=== PATIENT | male | born 1965 | race Caucasian/White ===

== ENCOUNTER 2020-05-22 13:04 | Emergency (ER) | payer MEDICARE, OTHER ==
[~2020-05-22] VITALS: Ht 165.1 cm; Wt 77.1 kg
[2020-05-22 13:04] VITALS: BP 170/74
--- NOTE | 2020-05-22 13:04 | NUR ---
PATIENT BIBA ALS TO ER BED 10
--- NOTE | 2020-05-22 13:16 | NUR ---
RECEIVED A 54/M FROM EMS FOR A 5150. PER EMS PT REPORTS THAT HE HAS DESIRES TO END HIS LIFE. UPON INTERVIEW WITH THE PATIENT, HE DENIES WANTING TO HARM HIMSELF OR OTHERS. WHEN ASKED WHY THE PATIENT WAS IN THE HOSPITAL HE STATED "I DONT KNOW WHY I'M HERE" PT IS ALERT TO NAME, BIRTHDAY, PLACE, EVENT. ALL POTENTIALLY HAZARDOUS ITEMS REMOVED FROM ROOM. IN BED PENDING MSE.
[2020-05-22 14:03] LABS: BASOPHILS # (AUTO) 0.1 K/uL (0.00-0.22); EOSINOPHILS # (AUTO) 0.2 K/uL (0-0.4); EOSINOPHILS % (AUTO) 3.3 % (0.0-4.0); HEMATOCRIT 28.9 % (36-52); HEMOGLOBIN 9.5 g/dL (12.0-18.0); LYMPHOCYTES # (AUTO) 0.6 K/uL (2.0-11.5); LYMPHOCYTES % (AUTO) 11.3 % (20.5-51.1); MEAN CORPUSCULAR HEMOGLOBIN 32 pg (27-31); MEAN CORPUSCULAR HGB CONC 33 g/dL (33-37); MEAN CORPUSCULAR VOLUME 95.9 fL (80-94); MONOCYTES # (AUTO) 0.4 K/uL (0.8-1.0); MONOCYTES % (AUTO) 7.4 % (1.7-9.3); NEUTROPHILS # (AUTO) 4.1 K/uL (1.8-7.7); PLATELET COUNT (AUTO) 249 K/uL (140-450); RED BLOOD CELL COUNT(AUTO) 3.01 MIL/uL (4.20-6.10); RED CELL DISTRIBUTION WIDTH 14.8 % (11.6-13.7); WHITE BLOOD COUNT (AUTO) 5.3 K/uL (4.8-10.8)
--- NOTE | 2020-05-22 14:29 | NUR ---
PATIENT MOVED TO ER [facility]
[2020-05-22 14:31] LABS: ALBUMIN 1.7 g/dL (3.4-5.0); ANION GAP 16.7 (8-16); ASPARTATE AMINOTRANSFERASE 30 U/L (15-37); CARBON DIOXIDE 18.4 mmol/L (21-32); CHLORIDE 109 mmol/L (98-107); GFR ARICAN-AMERICAN 10 mL/min (>90); GLUCOSE 118 mg/dL (74-106); SODIUM SERUM 138 mmol/L (136-145); TOTAL BILIRUBIN 0.3 mg/dL (0.0-1.0)
--- NOTE | 2020-05-22 15:03 | NUR ---
PATIENT MOVED TO ER [facility]
[2020-05-22 15:05] LABS: CREATININE 7.4 mg/dL (0.6-1.3); POTASSIUM 6.1 mmol/L (3.5-5.1); SALICYLATE < 2.8 mg/dL (2.8-20.0); UREA NITROGEN, BLOOD 80 mg/dL (7-18)
[2020-05-22 15:06] LABS: ACETAMINOPHEN < 0.5 ug/ml (10-30)
[2020-05-22] MEDS ORDERED: SODIUM BICARBONATE 8.4% PFS 50 MEQ/50 ML SYR IVP ONE (15:15)
[2020-05-22] MEDS ORDERED: DEXTROSE 50% 50 ML SYR IVP ONE (15:15)
[2020-05-22] MEDS ORDERED: INSULIN REGULAR, HUMAN 100 UNIT/ML VIAL IVP ONE (15:15)
--- NOTE | 2020-05-22 15:21 | NUR ---
COVID DEE SWAB & URINE SPECIMEN COLLECTED.
[2020-05-22] MEDS ORDERED: FUROSEMIDE 40 MG/4 ML VIAL IVP ONE (15:45)
[2020-05-22 15:46] LABS: APPEARANCE,URINE SL CLOUDY (CLEAR); BILIRUBIN,URINE NEGATIVE (NEGATIVE); BLOOD, URINE 2+ (NEGATIVE); COLOR,URINE YELLOW (YELLOW); LEUKOCYTE ESTERASE ,URINE 2+ (NEGATIVE); NITRITE, URINE NEGATIVE (NEGATIVE); UGLUCOSE 1+ (NEGATIVE)
--- NOTE | 2020-05-22 16:00 | NUR ---
DR. BARTON CAME TO EVALUATE PT AND REMOVED 5150 HOLD FROM PATIENT.
[2020-05-22 16:07] LABS: BARBITURATE, URINE NEGATIVE ng/ml (NEG <=200); BENZODIAZEPINE, URINE NEGATIVE ng/mL (NEG <=200); CANNABINOID, URINE NEGATIVE ng/mL (NEG <=50); COCAINE, URINE NEGATIVE ng/mL (NEG <=300); OPIATE, URINE NEGATIVE ng/mL (NEG <=2000); PHENCYCLIDINE SCREEN,URINE NEGATIVE ng/mL (NEG <=25)
[2020-05-22 18:33] LABS: WBC,URINE 20-60 /HPF (0-5)
--- NOTE | 2020-05-22 19:06 | NUR ---
PATIENT BEING TRANSFERRED ALS TO [facility] 612B NUMBER FOR REPORT [phone] ACCEPTING NURYS KHAN
--- NOTE | 2020-05-22 19:31 | NUR ---
GAVE REPORT TO ROSY NOGUERA AT [facility]. PT VSS. NO SIGN OF DISTRESS NOTED. PT TO BE TRANSPORTED BY [facility] WITH EMS, [facility]. ETA FOR FACILITY IS 40 MIN.
[2020-05-22 19:41] VITALS: BP 150/74
== END 2020-05-22 19:41 | disposition designated cancer center or children's hospital (05) ==
LOC: MED 13:04
DX: U07.1 COVID-19 (principal); E87.5 Hyperkalemia; D64.9 Anemia, unspecified; E11.9 Type 2 diabetes mellitus without complications; I10 Essential (primary) hypertension
CPT/HCPCS: 36415; 80053; 80305; 81001; 85025; 87086; 87426; 93005; 96374; 96375; 99284; G0480; G0482; J1815; J1940